=== PATIENT | female | born 1980 ===

== ENCOUNTER 2023-03-17 22:50 | Emergency (ER) | payer SELFPAY ==
[2023-03-17 23:00] VITALS: BP 172/97; PULSE 108; RESP 18; TEMP 36.6; O2SAT 100; BMI 37.1
--- NOTE | 2023-03-17 23:04 | DI.RAD.S_ITS ---
PROCEDURE: XR CHEST 1V INDICATIONS: chest pain TECHNIQUE: One view of the chest was acquired. COMPARISON: None. FINDINGS: Surgical changes and devices: None. Lungs and pleura: Lungs are clear. No pleural effusions or pneumothorax. Mediastinum: Mediastinal contours appear normal. Heart size is normal. Bones and chest wall: No suspicious bony lesions. Overlying soft tissues appear unremarkable. IMPRESSION: 1. No acute cardiopulmonary disease. Dictated by: Ander Moe M.D. on 03/18/2023 at 0:14 Approved by: Ander Moe M.D. on 03/18/2023 at 0:21
--- NOTE | 2023-03-17 23:13 | ED_ITS ---
HPI - General Adult General Chief complaint: Chest Pain Stated complaint: Chest pain Time Seen by Provider: 03/17/23 22:56 History of Present Illness HPI narrative: 42-year-old female smoker with history of Crohn's and pericarditis presents with a chief complaint of a sharp and stabbing central chest pain that started this evening. She states it feels just like when she had pericarditis before and had been on colchicine for upwards of 2 months. She states it is worse with a deep breath and lying flat and improves when she leans forward. She denies associated symptoms such as dizziness, weakness or lightheadedness. She denies any nausea or vomiting. She denies recent travel, trauma or injury. Related Data Allergies Allergy/AdvReac Type Severity Reaction Status Date / Time ketorolac [From Toradol] Allergy Rash Verified 03/18/23 00:35 Review of Systems Review of Systems Narrative: GENERAL: Denies chills, fatigue, malaise, fever, sweats. HEENT: Denies sinus pain, ear pain, sore throat, difficulty swallowing, di zziness. RESPIRATORY: Denies dyspnea, cough, wheezing, hemoptysis, sputum. CARDIOVASCULAR: See HPI GASTROINTESTINAL: Denies nausea, vomiting, abdominal pain, diarrhea, constipation, melena. : Denies dysuria, frequency, incontinence, hematuria, urinary retention. MUSCULOSKELETAL: denies weakness, joint pain, or bony pain SKIN: Denies rash, skin lesions, or other NEUROLOGIC: Denies weakness, headache, numbness, change in speech, confusion, seizures, incoordination. PSYCHIATRIC: No concerning psychosocial issues. 12 point review of systems is negative except for those stated above Patient History Social History Smoking Status: Current every day smoker Exam Narrative Exam Narrative: GENERAL: [42] year old patient appears stated age. Well-developed patient, in mild distress. HEAD: Atraumatic. Normocephalic. EYES: Pupils equal round and reactive. Extraocular motions intact. No scleral icterus. No injection or drainage. ENT: Nose without bleeding, purulent drainage. Throat without erythema, tonsillar hypertrophy or exudate. Airway patent. NECK: Trachea midline. Non tender CARDIOVASCULAR: Regular rate and rhythm without murmurs, gallops, or rubs. RESPIRATORY: Clear to auscultation. Breath sounds equal bilaterally. No wheezes, rales, or rhonchi. GASTROINTESTINAL: Abdomen soft, non-tender, nondistended. EXTREMITIES: No edema or joint tenderness. BACK: Nontender without deformity or crepitance. No flank tenderness. NEURO: AOx3. SKIN: No rash or erythema of visible areas Initial Vital Signs Initial Vital Signs: Vital Signs Temperature 97.9 F 03/17/23 23:00 Pulse Rate 108 H 03/17/23 23:00 Respiratory Rate 18 03/17/23 23:00 Blood Pressure 172/97 H 03/17/23 23:00 Pulse Oximetry 100 03/17/23 23:00 Oxygen Delivery Method Room Air 03/17/23 23:00 Scores HEART Score Heart Score history: Slightly Suspicious Heart Score EKG: Non-Specific repolarization disturbance Heart Score Age: < 45 years old Heart Score risk factors: No known risk factors Heart Score troponin: < or = to normal limit Heart Score Total: 1 Course Orders Ordered: Discontinued Medications Aspirin (Aspirin 81 Mg Chew Tab) 324 mg PO NOW ONE Stop: 03/17/23 23:04 Last Admin: 03/18/23 00:30 Dose: 324 mg Documented By: SIGIFREDO Sodium Chloride (Normal Saline 0.9%) 1,000 mls @ 150 mls/hr IV CONT DORY Last Infusion: 03/18/23 02:52 Dose: 0 mls/hr Documented By: Admin: 03/18/23 00:30 Dose: 150 mls/hr Documented By: SIGIFREDO Ketorolac Tromethamine (Ketorolac 30 Mg/Ml Vial) 15 mg IV NOW ONE Stop: 03/18/23 00:20 Last Admin: 03/18/23 00:34 Dose: Not Given Documented By: SIGIFREDO Morphine Sulfate (Morphine 4 Mg/Ml Inj) 4 mg IV NOW ONE Stop: 03/18/23 01:14 Last Admin: 03/18/23 01:22 Dose: 4 mg Documented By: SIGIFREDO Nitroglycerin (Nitroglycerin 0.4 Mg Sl Tab) 0.4 mg SL [id number] PRN PRN Reason: Chest Pain Reevaluation(s) Reevaluation #1: toradol ordered, patient states she has an allergy. Morphine ordered which did give temporary relief Medical Decision Making Lab Data 03/17/23 23:26 03/17/23 23:26 Labs: Lab Results 03/17/23 03/17/23 03/17/23 Range/Units 23:26 23:26 23:26 WBC (4.5-11.0) X10^3/uL RBC (4.0-5.2) X10^6/uL Hgb (12.0-16.0) g/dL Hct (36-46) % MCV (80-100) fL MCH (26-34) PG MCHC (30-36) % RDW (11.6-14.8) % Plt Count (150-400) X10^3/uL Neut % (Auto) (50-75) % Lymph % (Auto) (25-40) % Dubois % (Auto) (3-14) % Eos % (Auto) (2-4) % Baso % (Auto) (0-2) % Neut # (Auto) (4307-3502) /uL Lymph # (Auto) (9201-2729) /uL Dubois # (Auto) (0-900) /uL Eos # (Auto) (0-450) /uL Baso # (Auto) (0-100) /uL ESR 28 H (0-20) MM/HR PT 11.0 (10.1-12.7) SECONDS INR 1.0 (0.9-1.3) D-Dimer 672 H (<500) ng/ml Sodium (137-145) mmol/L Potassium (3.4-5.1) mmol/L Chloride (98-107) mmol/L Carbon Dioxide (22-32) mmol/L BUN (7-17) mg/dL Creatinine (0.52-1.04) mg/dL Estimated GFR (>60) mL/min BUN/Creatinine Ratio (6-22) Glucose (70-100) mg/dL Calcium (8.4-10.2) mg/dL Total Bilirubin (0.2-1.3) mg/dL AST (14-36) IU/L ALT (<35) IU/L Alkaline Phosphatase (38-126) U/L Total Creatine Kinase (30-135) U/L Troponin I (0.01-0.034) ng/mL C-Reactive Protein 0.8 (<1.0) mg/dL NT-Pro-B Natriuret Pep (<125) pg/mL Total Protein (6.3-8.2) g/dL Albumin (3.5-5.0) g/dL Globulin (1.7-4.1) g/dL Albumin/Globulin Ratio (1.0-2.8) Lipase (23-300) U/L 03/17/23 03/17/23 Range/Units 23:26 23:26 WBC 9.7 (4.5-11.0) X10^3/uL RBC 4.56 (4.0-5.2) X10^6/uL Hgb 11.3 L (12.0-16.0) g/dL Hct 34.9 L (36-46) % MCV 76.5 L (80-100) fL MCH 24.7 L (26-34) PG MCHC 32.3 (30-36) % RDW 17.2 H (11.6-14.8) % Plt Count 301 (150-400) X10^3/uL Neut % (Auto) 56.5 (50-75) % Lymph % (Auto) 31.3 (25-40) % Dubois % (Auto) 9.1 (3-14) % Eos % (Auto) 2.3 (2-4) % Baso % (Auto) 0.8 (0-2) % Neut # (Auto) 5500 (7224-5190) /uL Lymph # (Auto) 3000 (9396-5634) /uL Dubois # (Auto) 900 (0-900) /uL Eos # (Auto) 200 (0-450) /uL Baso # (Auto) 100 (0-100) /uL ESR (0-20) MM/HR PT (10.1-12.7) SECONDS INR (0.9-1.3) D-Dimer (<500) ng/ml Sodium 138 (137-145) mmol/L Potassium 3.5 (3.4-5.1) mmol/L Chloride 101 (98-107) mmol/L Carbon Dioxide 29 (22-32) mmol/L BUN 9 (7-17) mg/dL Creatinine 0.98 (0.52-1.04) mg/dL Estimated GFR > 60 (>60) mL/min BUN/Creatinine Ratio 9.2 (6-22) Glucose 60 L (70-100) mg/dL Calcium 8.6 (8.4-10.2) mg/dL Total Bilirubin 0.3 (0.2-1.3) mg/dL AST 23 (14-36) IU/L ALT 13 (<35) IU/L Alkaline Phosphatase 94 (38-126) U/L Total Creatine Kinase 36 (30-135) U/L Troponin I < 0.012 (0.01-0.034) ng/mL C-Reactive Protein (<1.0) mg/dL NT-Pro-B Natriuret Pep 139 H (<125) pg/mL Total Protein 8.0 (6.3-8.2) g/dL Albumin 4.2 (3.5-5.0) g/dL Globulin 3.8 (1.7-4.1) g/dL Albumin/Globulin Ratio 1.1 (1.0-2.8) Lipase 64 (23-300) U/L ECG Data Interpretation: [2311] EKG is sinus tachycardia with rate 106] and free of any signs of ischemia or ectopy. No ST segmental elevation or depression. No T wave inversions MDM Narrative Medical decision making narrative: CC: 42-year-old female with burning retrosternal chest pain that is sharp and stabbing Complicating co-morbidities: Crohn's, prior pericarditis Data collected from: Patient Medical records reviewed: Prior notes reviewed in our EMR Differential considered, but not limited to: Pericarditis versus cardiac ischemia versus pulmonary embolism versus other Exam documented above, pertinent findings include: Slightly tachycardic on arrival, no reproducible pain on palpation, lungs clear, abdomen soft Lab Test results independently reviewed as above. Pertinent findings: Independently reviewed EKG as above Imaging studies independently reviewed: CT angiogram demonstrates no PE but does demonstrate a small pulmonary nodule and recommended follow-up in 6-12 months Scores Used: HEART Treatments: Morphine Re-evaluations: improved pain Discussion: Patient with reproducible sharp and stabbing chest pain that is pleuritic in nature, worse with deep breath and lying flat, most consistent per the patient with prior pericarditis. Other diagnoses such as cardiac ischemia and others considered as noted above. Cardiac ischemia thought unlikely given sharp and stabbing nature, lack of radiation of pain, lack of other red flags such as nausea, vomiting, or diaphoresis. No exertional symptoms or has intolerance. EKGs nonischemic, troponin negative and heart score low. Pulmonary embolism considered but thought unlikely given lack of findings on CT angiogram. Patient does not have the full criteria for pericarditis but it see ms likely. Patient elected to leave Against Medical Advice prior to the completion of our evaluation which would have included another troponin and more extensive discussion. She left before I was able to speak with her much but was encouraged to stay for complete workup. She understands that she may return at any point if she changes her mind. Disposition: see below, along with detailed discharge instructions that have been reviewed with patient as well as indications for ED re-evaluation and additional outpatient follow up Discharge Plan Departure Patient Disposition: Left Against Medical Advice Clinical Impression: Left against medical advice Stand Alone Forms: Against Medical Advice
[2023-03-17 23:24] VITALS: PULSE 96; RESP 15; O2SAT 100
[2023-03-17 23:25] VITALS: BP 168/94; PULSE 96; RESP 14; O2SAT 99
[2023-03-17 23:30] VITALS: BP 140/81; PULSE 97; RESP 18; O2SAT 99
[2023-03-17 23:36] LABS: Add Manual Diff / Slide Review NO; Basophils Absolute Auto 100 /uL (0-100); Basophils Percent Auto 0.8 % (0-2); Eosinophils Absolute Auto 200 /uL (0-450); Eosinophils Percent Auto 2.3 % (2-4); Hematocrit 34.9 % (36-46); Hemoglobin 11.3 g/dL (12.0-16.0); Lymphocytes Absolute Auto 3000 /uL (1100-4500); Lymphocytes Percent Auto 31.3 % (25-40); Mean Corpuscular HGB Conc 32.3 % (30-36); Mean Corpuscular Hemoglobin 24.7 PG (26-34); Mean Corpuscular Volume 76.5 fL (80-100); Monocytes Absolute Auto 900 /uL (0-900); Monocytes Percent Auto 9.1 % (3-14); Neutrophils Absolute Auto 5500 /uL (1500-7000); Neutrophils Percent Auto 56.5 % (50-75); Platelet Count 301 X10^3/uL (150-400); Red Blood Cell Count 4.56 X10^6/uL (4.0-5.2); Red Cell Distribution Width 17.2 % (11.6-14.8); White Blood Cell Count 9.7 X10^3/uL (4.5-11.0)
--- NOTE | 2023-03-17 23:36 | PC.NURSE ---
pain is sharp in nature
[2023-03-17 23:45] LABS: D Dimer 672 ng/ml (<500)
[2023-03-17 23:50] LABS: Alanine Aminotransferase 13 IU/L (<35); Albumin 4.2 g/dL (3.5-5.0); Albumin Globulin Ratio 1.1 (1.0-2.8); Alkaline Phosphatase 94 U/L (38-126); Aspartate Aminotransferase 23 IU/L (14-36); BUN Creatinine Ratio 9.2 (6-22); Bilirubin Total 0.3 mg/dL (0.2-1.3); Blood Urea Nitrogen 9 mg/dL (7-17); Calcium 8.6 mg/dL (8.4-10.2); Carbon Dioxide 29 mmol/L (22-32); Chloride 101 mmol/L (98-107); Creatine Kinase 36 U/L (30-135); Estimated Glomerular Filt Rate > 60 mL/min (>60); Globulin 3.8 g/dL (1.7-4.1); Glucose 60 mg/dL (70-100); HEMOLYSIS < 15 (0-50); Lipase 64 U/L (23-300); Potassium 3.5 mmol/L (3.4-5.1); Sodium 138 mmol/L (137-145)
[2023-03-17 23:51] LABS: C-Reactive Protein Quant 0.8 mg/dL (<1.0)
[2023-03-17 23:58] LABS: Erythrocyte Sedimentation Rate 28 MM/HR (0-20)
[2023-03-18] VITALS (7 sets, daily range): PULSE 82–99; RESP 12–23; O2SAT 91–98
[2023-03-18] LABS: NT-proBNP (BNP-Adult 18+) 139 pg/mL (<125); Troponin I < 0.012 ng/mL (0.01-0.034)
--- NOTE | 2023-03-18 00:01 | DI.CT.S_ITS ---
PROCEDURE: CT ANGIO CHEST PE PROTOCOL INDICATIONS: chest pain, pleuritic, elevated D Dimer TECHNIQUE: After the administration of intravenous contrast, 2 mm thick sections acquired from the pulmonary apices to the posterior costophrenic angles. 3-dimensional maximum intensity projection (MIP) coronal and sagittal reformats were then acquired through the thorax. For radiation dose reduction, the following was used: automated exposure control, adjustment of mA and/or kV according to patient size. COMPARISON: None. FINDINGS: Image quality: Excellent. Pulmonary arteries: Pulmonary arteries are normal in size, and demonstrate no intraluminal filling defects to suggest central pulmonary embolism. Lower Neck: No lymphadenopathy by size criteria. Thyroid: Visualized thyroid demonstrates no discrete nodules. Axillae: No lymphadenopathy by size criteria. Chest Wall: Unremarkable. Bones: Visualized osseous structures demonstrate no suspicious lesions. Lungs and Airways: No acute consolidation. There is a small pleural base nodule anteriorly in the right middle lobe measuring up to 0.6 cm. The trachea and central airways are patent. Pleura: No pneumothorax or pleural effusions. Heart: Heart size is normal. No pericardial effusion. Thoracic Vessels: The thoracic aorta is normal in size. Mediastinum and Susan: No lymphadenopathy by size criteria. Esophagus: No wall thickening. No hiatal hernia. Abdomen: Visualized upper abdominal solid organs appear normal in the early arterial phase of enhancement. IMPRESSION: 1. No evidence of pulmonary embolism. 2. No acute airspace consolidation. 3. Small right middle lobe 0.6 cm pulmonary nodule. If patient is at high risk for malignancy, a follow-up CT may be performed in 12 months to demonstrate stability. Dictated by: Ander Moe M.D. on 03/18/2023 at 2:12 Approved by: Ander Moe M.D. on 03/18/2023 at 2:15
[2023-03-18] MEDS: SODIUM CHLORIDE 0.9% 1,000 ML 150 ML IV (00:30)
[2023-03-18] MEDS: ASPIRIN 81 MG CHEW TAB 324 MG PO (00:30)
[2023-03-18] MEDS: MORPHINE 4 MG/ML INJ IV (01:22)
--- NOTE | 2023-03-18 03:32 | PC.NURSE ---
pt to nurses' station requesting pain medication Dr Mcclain informed pt he ordered some NTG to try to help her pain, after speaking to Dr Mcclain pt returned to her room when asked if she would allow blood to be drawn for follow up labs she stated am I going to get pain medication for this explained he wanted her have the NTG first she then stated I just want to go home Dr Mcclain informed
--- NOTE | 2023-03-18 03:47 | PC.NURSE ---
pt requesting to leave, Dr Mcclain informed, pt to sign out AMA, form explained to pt with understanding verbalized per pt and form signed
== END 2023-03-18 03:49 | disposition left against medical advice (07) ==
PROVIDERS: Emergency Provider Emergency Medicine
DX: R07.9 Chest pain, unspecified (principal); R00.0 Tachycardia, unspecified
CPT/HCPCS: 36415; 71045; 71275; 80053; 82550; 83690; 83880; 84484; 85025; 85379; 85610; 85651; 86140; 93005; 96361; 96374; 99284; J1885; J2270; Q9967